=== PATIENT | female | born 1980 | race Caucasian/White ===

== ENCOUNTER 2020-08-28 18:25 | Emergency (ER) | payer SELFPAY ==
[~2020-08-28] VITALS: Ht 180.3 cm; Wt 90.5 kg
--- NOTE | 2020-08-28 18:37 | PHYS DOC ---
Past History Past Medical History: TIA General Adult EDM: Chief Complaint: NEURO SYMPTOMS/DEFICITS HPI: HPI: Pt. was activated by [employer] for Code Stroke- Reportedly having facial droop and right side weakness at 1800 hrs. Pt. normal at 1600hrs. Pt. on arrival had no signficant findings. Pt. Transfer from retirement. Patient is a 39 year old female who presents with above hx and complaints of possible slurred speech, facial droop and right-sided weakness symptoms have been present since 1800 hrs. Other than the subjective weakness on right side patient currently at her baseline. Patient is and currently living in retirement. Pt.denies illicit drug use. Has past hx of TIAs, eclampsia with previous pregnancies. Patient is gravid 8-, term 5, 1 miscarriages, and one tubal and current . Patient has previous medical history of anemia, anxiety, DVT, TIAs, preeclampsia, eclampsia, sinus venous thrombosis, vertigo, PTSD, hearing deficits, patellar release, eustachian tube, gastric bypass, and hearing deficits. Patient currently on Lovenox. Review of Systems: Review of Systems: Constitutional: Denies fever or chills Eyes: Denies change in visual acuity HENT: Denies nasal congestion or sore throat Respiratory: Denies cough or shortness of breath Cardiovascular: Denies chest pain or edema GI: Denies abdominal pain, nausea, vomiting, bloody stools or diarrhea : Denies dysuria Musculoskeletal: Denies back pain or joint pain Integument: Denies rash Neurologic: Denies headache, focal weakness or sensory changes Endocrine: Denies polyuria or polydipsia Lymphatic: Denies swollen glands Psychiatric: Denies depression or anxiety Family History: Family History: Noncontributory to presentation Current Medications: Current Meds: See nursing for home meds Allergies: Allergies: No known drug allergies Physical Exam: PE: Constitutional: , no acute distress, non-toxic appearance. [] HENT: Normocephalic, atraumatic, bilateral external ears normal, oropharynx moist, no oral exudates, nose normal. Hearing aids Eyes: PERRLA, EOMI, conjunctiva normal, no discharge. [] Neck: Normal range of motion, no tenderness, supple, no stridor. [] Cardiovascular:Heart rate regular rhythm, no murmur [] Lungs & Thorax: Bilateral breath sounds equal at apex auscultation [] Abdomen: Bowel sounds normal, soft, no tenderness, no masses, no pulsatile masses. [] No vaginal bleeding. Old surgical scar Skin: Warm, dry, no erythema, no rash. [] Back: No tenderness, no CVA tenderness. [] Extremities: No tenderness, no cyanosis, no clubbing, ROM intact, no edema. [] Neurologic: Alert and oriented X 3, moves all extremities on request has distal sensory function, no focal deficits noted. DTRs +2 patella and brachial. Staffing Rn equal. Right-hand dominant. Hearing deficits. Psychologic: Affect normal, judgement normal, mood normal. [] EKG: EKG: My interpretation EKG shows a sinus rhythm at 69 bpm. No acute morphology ap preciated [] Radiology/Procedures: Radiology/Procedures: [address] [address] IMAGING REPORT Signed PATIENT: TARA HUTCHISON ACCOUNT: [id number] : 1980 LOCATION: ER AGE: 39 SEX: F EXAM STATUS: REG ER ORD. PHYSICIAN: CHAMP HATFIELD MD REASON: SLURRED SPEECH, RIGHT FACIAL DROOP PROCEDURE: CT CODE STROKE HEAD WO Exam: CT head INDICATION: Slurred speech TECHNIQUE: Sequential axial images through the head were obtained without the administration of IV contrast. Exposure: One or more of the following in the visualized dose reduction techniques were utilized for this examination: 1. Automated exposure control 2. Adjustment of the MA and/or KV according to patient size 3. Use of iterative of reconstructive technique Comparisons: None FINDINGS: No focal parenchymal lesion or hemorrhage is identified. There is no midline shift or sulcal effacement. No acute vascular territory infarction is identified. Marinelli-white distinction is preserved. The ventricular system is within normal limits without compression hydrocephalus. The basal cisterns are well maintained. The visualized portions of the paranasal sinuses and mastoid air cells are well- pneumatized. No acute fractures. IMPRESSION: No acute intracranial abnormality. FOR INTERNAL CODING PURPOSES Critical result: Findings discussed with Dr. Hatfield at 08/28/2020 6:39 PM. RESULT CODE: (C) Electronically signed by: Montana Vargas MD (08/28/2020 6:41 PM) [facility] Heart Score: C/O Chest Pain: N/A HEART Score for Chest Pain: HEART Score for Chest Pain Response (Comments) Value History Slighlty/Non-Suspicious 0 ECG Normal 0 Risk Factors 1 or 2 Risk Factors 1 Troponin < Normal Limit 0 Total 1 Risk Factors: Risk Factors: DM, Current or recent (<one month) smoker, HTN, HLP, family history of CAD, obesity. Risk Scores: Score 0 - 3: 2.5% MACE over next 6 weeks - Discharge Home Score 4 - 6: 20.3% MACE over next 6 weeks - Admit for Clinical Observation Score 7 - 10: 72.7% MACE over next 6 weeks - Early Invasive Strategies Course & Med Decision Making: Course & Med Decision Making Pertinent Labs and Imaging studies reviewed. (See chart for details) Repeat neuro checks. No demonstratable lesions. Still have not received labs-two call for lab- 2200 hrs. Patient requesting discharge. Refused transfer. Demands discharge home. Pt. exhibit [employer] capacity. 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 Patient take meds as previously directed. Pt. return if any concerns. Impression: 1. Gravid beta-hCG 13, 445 ( Reports 15 weeks) 2. Maternal blood type a negative 3.. History of TIAs and CVA-cavernous sinus thrombosis 4. Microcytic anemia hemoglobin 9.0 volume 72 hemoglobin concentration 22 5. [Note there is CT results not associated with this pt. Error at time- Computers down for repair or maintenance. See handwritten record for details.] Dragon Disclaimer: Dragon Disclaimer: This electronic medical record was generated, in whole or in part, using a voice recognition dictation system. Departure Departure: Referrals: PCP,UNKNOWN (PCP) CHAMP HATFIELD MD Aug 28, 2020 18:37
--- NOTE | 2020-08-28 18:43 | RAD ---
Exam: CT head INDICATION: Slurred speech TECHNIQUE: Sequential axial images through the head were obtained without the administration of IV co ntrast. Exposure: One or more of the following in the visualized dose reduction techniques were utilized for this examination: 1. Automated exposure control 2. Adjustment of the MA and/or KV according to patient size 3. Use of iterative of reconstructive technique Comparisons: None FINDINGS: No focal parenchymal lesion or hemorrhage is identified. There is no midline shift or sulcal effaceme nt. No acute vascular territory infarction is identified. Marinelli-white distinction is preserved. The ventricular system is within normal limits without compression hydrocephalus. The basal cisterns are well maintained. The visualized portions of the paranasal sinuses and mastoid air cells are well-pneumatized. No acute fractures. IMPRESSION: No acute intracranial abnormality. FOR INTERNAL CODING PURPOSES Critical result: Findings discussed with Dr. Hatfield at 08/28/2020 6:39 PM. RESULT CODE: (C) Electronically signed by: Montana Vargas MD (08/28/2020 6:41 PM) [facility]
[2020-08-28] MEDS ORDERED: IV RINGERS SOLUTION,LACTATED 1,000 ML IV SCH (18:45)
[2020-08-28 19:26] LABS: BASO % 0 % (0-3); EOS # 0.1 x10^3/uL (0.0-0.7); EOS % 2 % (0-3); HEMATOCRIT 29.2 % (36.0-47.0); LYMPH # 2.1 x10^3/uL (1.0-4.8); LYMPH % 34 % (24-48); MEAN CORPUSCULAR HEMOGLOBIN 22 pg (25-35); MEAN CORPUSCULAR HGB CONC 31 g/dL (31-37); MEAN CORPUSCULAR VOLUME 72 fL (79-100); MONO # 0.5 x10^3/uL (0.0-1.1); MONO % 8 % (0-9); NEUT # 3.5 x10^3uL (1.8-7.7); NEUT % 56 % (31-73); PLATELET COUNT 347 x10^3/uL (140-400); RED BLOOD COUNT 4.08 x10^6/uL (3.50-5.40); RED CELL DISTRIBUTION WIDTH 22.3 % (11.5-14.5); WHITE BLOOD COUNT 6.2 x10^3/uL (4.0-11.0)
[2020-08-28 21:00] LABS: BARBITURATES NEG (NEG); BENZODIAZEPINES NEG (NEG); CANNABINOIDS NEG (NEG); COCAINE NEG (NEG); METHADONE NEG (NEG); OPIATES NEG (NEG); PHENCYCLIDINE NEG (NEG)
[2020-08-28 21:11] LABS: AMPHETAMINE/METHAMPHETAMINE NEG (NEG)
[2020-08-28 21:19] LABS: BILIRUBIN,URINE NEG (NEG); CLARITY,URINE CLEAR; COLOR,URINE YELLOW; GLUCOSE,URINE NEG (NEG); NITRITE,URINE NEG (NEG); UROBILINOGEN,URINE 0.2 mg/dL (0.2 mg/dL)
[2020-08-28 21:21] LABS: BACTERIA,URINE FEW /HPF (0-FEW); RBC,URINE 0 /HPF (0-2); SQUAMOUS EPITHELIAL CELL,UR OCC /LPF; WBC,URINE OCC /HPF (0-4)
[2020-08-28 22:45] LABS: ANION GAP 14 (6-14); BLOOD UREA NITROGEN 4 mg/dL (7-20); CALCIUM 8.6 mg/dL (8.5-10.1); CARBON DIOXIDE 22 mmol/L (21-32); CHLORIDE 108 mmol/L (98-107); CREATININE 0.6 mg/dL (0.6-1.0); GFR 111.3; GLUCOSE 90 mg/dL (70-99); POTASSIUM 4.1 mmol/L (3.5-5.1); SODIUM 144 mmol/L (136-145)
[2020-08-28 22:58] LABS: ALBUMIN 2.8 g/dL (3.4-5.0); ALK PHOS 56 U/L (46-116); ALT (SGPT) 17 U/L (14-59); AST (SGOT) 13 U/L (15-37); C REACTIVE PROTEIN 3.5 mg/L (0-3.3); DIRECT BILIRUBIN < 0.1 mg/dL (0.0-0.2); LIPASE 131 U/L (73-393); MAGNESIUM 2.1 mg/dL (1.8-2.4); TOTAL BILIRUBIN 0.2 mg/dL (0.2-1.0); TOTAL PROTEIN 6.2 g/dL (6.4-8.2)
[2020-08-28] MEDS ORDERED: ACETAMINOPHEN 500 MG TABLET PO ONE (23:45)
[2020-08-28] MEDS ORDERED: ENOXAPARIN ** NOTE DOSE ** SYRINGE SQ ONE (23:45)
[2020-08-29] VITALS: BP 103/53
--- NOTE | 2020-08-29 00:07 | EKG ---
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
[2020-08-29] MEDS ORDERED: ENOXAPARIN ** NOTE DOSE ** SYRINGE SQ ONE (00:45)
== END 2020-08-29 00:24 | disposition home or self-care (01) ==
LOC: ER 18:25
DX: O99.012 Anemia complicating pregnancy, second trimester (principal); D50.9 Iron deficiency anemia, unspecified; Z3A.15 15 weeks gestation of pregnancy; Z20.822 Contact with and (suspected) exposure to COVID-19; Z86.73 Personal history of transient ischemic attack (TIA), and cerebral infarction without residual deficits
CPT/HCPCS: 36415; 70450; 80048; 80076; 80307; 81001; 82550; 83690; 83735; 83880; 84443; 84484; 84702; 85025; 86140; 86900; 86901; 87077; 87086; 87186; 87426; 93005; 96360; 96361; 99285; C9803; J7120; U0003